=== PATIENT | female | born 1985 | race Caucasian/White ===

== ENCOUNTER 2022-09-20 14:07 | Outpatient (CLI) | payer OTHER, SELFPAY | END 2022-09-20 14:08 | disposition home or self-care (01) | LOC: NFLDREF 09-25 12:52 | PROVIDERS: Visit Provider Nurse Practitioner Family | DX: R30.0 Dysuria (principal); Z76.89 Persons encountering health services in other specified circumstances; N30.01 Acute cystitis with hematuria | CPT/HCPCS: 87086; 87186 ==